=== PATIENT | male | born 1990 | race Caucasian/White ===

== ENCOUNTER 2017-07-16 18:40 | Inpatient (IN) | payer BC, OTHER ==
[~2017-07-16] VITALS: Ht 177.8 cm; Wt 85.3 kg
[2017-07-16] MEDS ORDERED: MAG HYDROX/AL HYDROX/SIMETH 30 ML LIQUID UDC PO PRN (19:30)
[2017-07-16] MEDS ORDERED: METHOCARBAMOL 750 MG TABLET PO PRN (19:30)
[2017-07-16] MEDS ORDERED: LOPERAMIDE HCL 2 MG CAPSULE PO PRN ×2 (19:30)
[2017-07-16] MEDS ORDERED: CLONIDINE HCL 0.1 MG TABLET PO PRN (19:30)
[2017-07-16] MEDS ORDERED: ONDANSETRON 4 MG/2 ML VIAL IM PRN (19:30)
[2017-07-16] MEDS ORDERED: ACETAMINOPHEN 325 MG TABLET PO PRN (19:30)
[2017-07-16] MEDS ORDERED: LORAZEPAM 1 MG TABLET PO PRN ×2 (19:30)
[2017-07-16] MEDS ORDERED: NICOTINE POLACRILEX 4 MG GUM-PK OF TEN BC PRN (19:30)
[2017-07-16] MEDS ORDERED: MIRALAX 17 GM POWD.PACK PO PRN (19:30)
[2017-07-16] MEDS ORDERED: IBUPROFEN 600 MG TABLET PO PRN (19:30)
[2017-07-16] MEDS ORDERED: BUPRENORPHINE HCL 2 MG TAB.SUBL SL PRN (19:30)
[2017-07-16] MEDS ORDERED: ONDANSETRON ODT 4 MG TAB.RAPDIS SL PRN (19:30)
[2017-07-16] MEDS ORDERED: DICYCLOMINE HCL 20 MG TABLET PO PRN (19:30)
[2017-07-16] MEDS ORDERED: diphenhydrAMINE 50 MG CAPSULE PO PRN (19:30)
[2017-07-16] MEDS ORDERED: NICOTINE 14 MG/24HR PATCH TD PRN (19:30)
[2017-07-16] MEDS ORDERED: LORAZEPAM 2 MG/1 ML VIAL IM PRN (19:30)
[2017-07-16 19:44] VITALS: BP 143/86
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
[2017-07-16 20:20] LABS: BASOPHILS # (AUTO) 0.1 K/uL (0.0-8.0); BASOPHILS % (AUTO) 0.7 % (0.0-2.0); EOSINOPHILS # (AUTO) 0.1 K/uL (0.0-0.7); EOSINOPHILS % (AUTO) 0.9 % (0.0-7.0); HEMATOCRIT 44.8 % (40-50); HEMOGLOBIN 14.9 G/DL (14.0-18.0); LYMPHOCYTES # (AUTO) 2.6 K/UL (0.8-4.8); LYMPHOCYTES % (AUTO) 22.2 % (20.5-51.5); MEAN CORPUSCULAR HEMOGLOBIN 28.8 UUG (27.0-31.0); MEAN CORPUSCULAR HGB CONC 33 g/dL (32.0-37.0); MEAN CORPUSCULAR VOLUME 86.5 FL (82.0-92.0); MONOCYTES # (AUTO) 1.3 K/UL (0.1-1.30); MONOCYTES % (AUTO) 11.3 % (0.0-11.0); NEUTROPHILS # (AUTO) 7.6 K/UL (1.8-8.9); NEUTROPHILS % (AUTO) 64.9 % (38.5-71.5); PLATELET COUNT (AUTO) 382 K/UL (150-450); RED BLOOD CELL COUNT(AUTO) 5.18 MIL/UL (4.7-6.1); WHITE BLOOD COUNT (AUTO) 11.7 K/UL (4.0-11.2)
[2017-07-16 20:28] LABS: ETHANOL < 3 MG/DL (0-0)
[2017-07-16 20:30] LABS: ALANINE AMINOTRANSFERASE 41 U/L (16-63); ALKALINE PHOSPHATASE 108 U/L (50-136); ASPARTATE AMINOTRANSFERASE 16 U/L (15-37); BILIRUBIN,TOTAL 0.8 mg/dL (0.2-1.0); CARBON DIOXIDE 27 mmol/L (21-32); CHLORIDE 103 mmol/L (98-107); CREATININE 0.8 mg/dL (0.6-1.3); GLUCOSE 108 mg/dL (74-106); MAGNESIUM 2.2 mg/dL (1.8-2.4); POTASSIUM 3.5 mmol/L (3.5-5.1); TOTAL PROTEIN, SERUM 8.1 g/dL (6.4-8.2); UREA NITROGEN, BLOOD 10 mg/dL (7-18)
[2017-07-16 20:44] LABS: *AMPHETAMINE, URINE NEGATIVE (NEGATIVE); *BARBITURATE, URINE NEGATIVE (NEGATIVE); *CANNABINOID, URINE POSITIVE (NEGATIVE); *COCCAINE, URINE POSITIVE (NEGATIVE); *OPIATE, URINE NEGATIVE (NEGATIVE); *PHENCYCLIDINE SCREEN,URINE NEGATIVE (NEGATIVE)
[2017-07-16 21:00] VITALS: BP 150/87
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
[2017-07-16] MEDS ORDERED: NEOM15OI3 TP (22:27)
[2017-07-17] VITALS: BP 127/85
[2017-07-17 04:00] VITALS: BP 144/86
--- NOTE | 2017-07-17 04:00 | NUR ---
COWS and CIWA deferred 0400 COWS & CIWA deferred for sleep.
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
[2017-07-17 08:00] VITALS: BP 136/75
[2017-07-17] MEDS ORDERED: TUBERCULIN,PURIF.PROT.DERIV. 5 TU/0.1 ML TEST ID ONE (09:00)
[2017-07-17 12:00] VITALS: BP 150/96
[2017-07-17 16:00] VITALS: BP 125/85
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
--- NOTE | 2017-07-17 19:34 | NUR ---
Start of shift note Received report from day shift nurse. Pt is a 27 yo male, A+Ox4, presenting to [facility] for Opiate/ETOH/Benzo dependence. Pt has NKA, is on Full code status, and on Regular diet. Pt is on Fall and Seizure precautions. Pt has HX of ADHD, HTN, Hyperlipidemia, and tonsillectomy. Pt is on PRN medications, tolerated well. No s/s of distress noted at this time. Respirations even and unlabored. Will continue to monitor.
[2017-07-17 20:54] VITALS: BP 143/86
[2017-07-18 00:29] VITALS: BP 135/79
[2017-07-18 04:33] VITALS: BP 128/76
--- NOTE | 2017-07-18 06:54 | NUR ---
End of shift note Pt is a 27 yo male, A+Ox4, presenting to [facility] for Opiate/ETOH/Benzo dependence. Pt has NKA, is on Full code status, and on Regular diet. Pt is on Fall and Seizure precautions. Pt has HX of ADHD, HTN, Hyperlipidemia, and tonsillectomy. Pt is on PRN medications, tolerated well. Pt slept for a total of 2 HRS. Last COWS: 2 and Last CIWA: 2 @0400. No s/s of distress noted at this time. Respirations even and unlabored. Will endorse to day shift nurse.
--- NOTE | 2017-07-18 07:58 | NUR ---
START OF SHIFT NOTE: Received report from warehouse worker 2nd shift nurse. Pt is a 27 yo male, A+Ox4, [facility]OH[facility]Benzo [facility]. Pt is on prn meds only. Pt is alert and oriented X4. Color good, skin warm and dry. Respirations even and unlabored. Safety precautions observed. Call light within reach.
--- NOTE | 2017-07-18 09:00 | NUR ---
VSS COWS 2 CIWA 2 Pt states "I feel good."
[2017-07-18 09:16] VITALS: BP 128/76
[2017-07-18 10:07] LABS: HEPATITIS B SURFACE AG Negative (Negative)
[2017-07-18] MEDS ORDERED: IBUP-1955 PO (12:41)
[2017-07-18] MEDS ORDERED: METH-406 PO (12:41)
[2017-07-18] MEDS ORDERED: DIPH50CA37 PO (12:41)
[2017-07-18] MEDS ORDERED: HYDR25CA PO (12:41)
[2017-07-18 12:43] VITALS: BP 142/78
--- NOTE | 2017-07-18 13:09 | NUR ---
Discharge photo of back taken and placed in chart.
[2017-07-18 17:42] VITALS: BP 142/99
--- NOTE | 2017-07-18 18:44 | NUR ---
END OF SHIFT NOTE: Report given to shift commander nurse. Pt is a 27 yo male, A+Ox4, presenting to [facility] for Opiate/ETOH/Benzo dependence. Pt is on prn meds only. Pt is alert and oriented X4. Color good, skin warm and dry. Respirations even and unlabored. Vital signs have remained stable throughout shift. Last CIWA 2 COWS 2. Safety precautions observed. Call light within reach.
--- NOTE | 2017-07-18 19:10 | NUR ---
Start of shift note Received report from day shift nurse. Pt is a 27 yo male, A+Ox4, presenting to [facility] for Opiate/ETOH/Benzo dependence. Pt has NKA, is on Full code status, and on Regular diet. Pt is on Fall and Seizure precautions. Pt has HX of ADHD, HTN, Hyperlipidemia, and tonsillectomy. Pt is on PRN medications, tolerated well, and is due for discharge tomorrow. No s/s of distress noted at this time. Respirations even and unlabored. Will continue to monitor.
[2017-07-18 20:10] VITALS: BP 144/86
[2017-07-19 00:22] VITALS: BP 138/84
[2017-07-19 04:06] VITALS: BP 133/74
--- NOTE | 2017-07-19 07:00 | NUR ---
End of shift note Pt is a 27 yo male, A+Ox4, presenting to [facility] for Opiate/ETOH/Benzo dependence. Pt has NKA, is on Full code status, and on Regular diet. Pt is on Fall and Seizure precautions. Pt has HX of ADHD, HTN, Hyperlipidemia, and tonsillectomy. Pt is on PRN medications, tolerated well, and is due for discharge today. Pt slept for a total of 6 HRS. Last COWS: 2 and Last CIWA: 1 @0400. No s/s of distress noted at this time. Respirations even and unlabored. Will endorse to day shift nurse.
--- NOTE | 2017-07-19 07:50 | NUR ---
START OF SHIFT Received report from night nurse. 27 year old male patient admitted on 07/16/17 for opiate, ETOH, benzo, cocaine and marijuana withdrawals. Pt is A/O x4. Pt is medically cleared for discharge and is aware. Pt does not present with s/s of withdrawals. Hx of ADHD, HTN, hyperlipidemia. NKA, full code, regular diet. No PRN medications were needed or administered at night. Pt slept for 6 hours. V/S are WNL. Most recent COWS 2 and CIWA 1 at 0400. All needs met at this time, safety measures remain in place, will continue to monitor.
[2017-07-19 08:40] VITALS: BP 129/79
--- NOTE | 2017-07-19 09:13 | NUR ---
D/C NOTES Pt is A/O x4. V/S remain WNL. Pt denies SI/HI or hallucinations. Pt shows no s/s of acute withdrawal at this time, and is stable. MD has medically cleared pt for d/c. Education on Hepatitis C, smoking cessation and medication side effects provided. Pt verbalizes understanding. All pt belongings are in belonging bag, including home medications. Refuses PNU vaccination. Pt is being accompanied by PROCUREMENT SERVICES MANAGER at this time to be transported to rehab. All needs met.
== END 2017-07-19 09:13 | disposition other institution (70) | DRG 895 ==
LOC: SRC 18:40
PROVIDERS: ADMIT Internal Medicine; ATTEND Internal Medicine
PROC: HZ2ZZZZ Detoxification Services for Substance Abuse Treatment (ICD-10-PCS; principal; 2017-07-16)
PROC: HZ41ZZZ Group Counseling for Substance Abuse Treatment, Behavioral (ICD-10-PCS; 2017-07-17)
PROC: HZ31ZZZ Individual Counseling for Substance Abuse Treatment, Behavioral (ICD-10-PCS; 2017-07-18)
DX: F13.230 Sedative, hypnotic or anxiolytic dependence with withdrawal, uncomplicated (principal); D72.823 Leukemoid reaction; F19.230 Other psychoactive substance dependence with withdrawal, uncomplicated; F10.10 Alcohol abuse, uncomplicated; Y90.9 Presence of alcohol in blood, level not specified; F12.20 Cannabis dependence, uncomplicated; F11.10 Opioid abuse, uncomplicated; F90.9 Attention-deficit hyperactivity disorder, unspecified type; I10 Essential (primary) hypertension; Z80.0 Family history of malignant neoplasm of digestive organs; Z82.0 Family history of epilepsy and other diseases of the nervous system; Z82.49 Family history of ischemic heart disease and other diseases of the circulatory system; F17.210 Nicotine dependence, cigarettes, uncomplicated; E78.5 Hyperlipidemia, unspecified; Z80.8 Family history of malignant neoplasm of other organs or systems
CPT/HCPCS: 36415; 70030-TC; 80307; 80346; 80349; 80353; 83735; 85025; 86580; 86592; 86705; 86803; 87340; 87806; A4663; G0480